=== PATIENT | male | born 1945 | race Two or more races ===

== ENCOUNTER 2020-07-02 09:41 | Emergency (ER) | payer OTHER ==
[2020-07-02] MEDS ORDERED: EPINEPHrine HCL 1 MG/10 ML SYRG IV ONE (09:42)
[2020-07-02] MEDS ORDERED: AMIODARONE HCL (50 MG/ ML) 3 ML VIAL IV ONE (09:42)
[2020-07-02] MEDS ORDERED: CALCIUM CHLOR(10%) 100MG/ML 10ML SYRINGE IV ONE (09:42)
[2020-07-02] MEDS ORDERED: DOPamine 1600mCg/ml 400MG/250ml NSorD5 KIT/BAG IV ONE (09:42)
[2020-07-02] MEDS ORDERED: SODIUM BICARBONATE 8.4% INJ 50ML SYRINGE IV ONE (09:42)
[2020-07-02 09:45] VITALS: BP 54/31
[2020-07-02] MEDS ORDERED: MIDAZOLAM DRIP 50 mg/50mL 50 ML IV ONE (09:50)
[2020-07-02] MEDS ORDERED: NOREPINEPHRINE 8 MG/250ML KIT 250 ML IV ONE (09:53)
[2020-07-02] MEDS: MIDAZOLAM DRIP 50 mg/50mL 50 ML IV SCH ×2 (09:54→10:54)
[2020-07-02] MEDS ORDERED: EPINEPHrine HCL 250 ML IV ONE (09:56)
[2020-07-02] MEDS ORDERED: SODIUM BICARBONATE 8.4% INJ 50ML SYRINGE ONE ×3 (09:58→10:14)
[2020-07-02] MEDS ORDERED: NOREPINEPHRINE 8 MG/250ML KIT 250 ML IV SCH (10:00)
[2020-07-02] MEDS ORDERED: SODIUM BICARBONATE 8.4 % INJ 50ML VIAL IV ONE (10:00)
[2020-07-02] MEDS ORDERED: EPINEPHrine HCL 250 ML IV SCH (10:00)
[2020-07-02 10:14] VITALS: BP 69/27
[2020-07-02] MEDS ORDERED: DOPamine 1600MCG/ML D5W 250 ML IV SCH (10:15)
[2020-07-02] MEDS ORDERED: [UNRECOGNIZED DRUG - OTHER] IV ONE (10:30)
[2020-07-02] MEDS ORDERED: SODIUM BICARBONATE IV ONE (10:30)
[2020-07-02] MEDS ORDERED: SODIUM CHLORIDE 0.9% 1,000 ML IV ONE (10:30)
[2020-07-02] MEDS ORDERED: SODIUM BICARB IV ONE (10:30)
[2020-07-02 10:32] LABS: Hemoglobin 13.1 g/dL (13.5-17.5); Mean Corpuscular Volume 93.8 fL (80.0-100.0)
[2020-07-02 10:36] LABS: Hematocrit 42.4 % (41.0-53.0); Mean Corpuscular Hgb Conc. 30.9 g/dL (32.0-36.0); Platelet Count (auto) 102 10^3/uL (140-450); Red Blood Cells 4.52 10^6/uL (4.5-5.90); White Blood Cell 13.6 10^3/uL (4.4-10.8)
[2020-07-02 10:38] LABS: Band Neutrophils % (manual) 0; Basophils % (manual) 0 (0.0-2.0); Blast Cells 0; Eosinophils % (manual) 0 (0-7); Promyelocytes % 0
[2020-07-02 10:53] LABS: Lymphocytes % (manual) 44 (10.0-50.0); Metamyelocytes % 3; Monocytes % (manual) 5 (0-12); Myelocytes % 4; Reactive Lymphocytes 1
[2020-07-02 10:54] LABS: Albumin 1.5 g/dL (3.4-5.0); BUN/Creatinine Ratio 22.6; Bilirubin, Total 0.4 mg/dL (0.2-1.0); CRP High Sensitivity 9.25 mg/dL (< 0.3); Total Protein 4.6 g/dL (6.4-8.2)
[2020-07-02 10:59] LABS: Calcium 13.3 mg/dL (8.5-10.1); Magnesium 4.3 mg/dL (1.6-2.6)
[2020-07-02 11:36] LABS: Lactic Acid w/Reflex 22.7 mmol/L (0.4-2.0)
== END 2020-07-02 10:35 | disposition expired ==
LOC: EDBD 09:41 → ER 09:41
DX: I46.9 Cardiac arrest, cause unspecified (principal); J96.90 Respiratory failure, unspecified, unspecified whether with hypoxia or hypercapnia; R41.82 Altered mental status, unspecified
CPT/HCPCS: 36415; 36556; 71045; 80053; 82728; 83605; 83615; 83735; 83880; 84484; 85007; 85027; 86141; 87040; 87070; 87077; 87186; 87205; 92950; 93005; 99291; J0171; J0282; J1265; J2250; 36600; 51702; 82805; 94002